=== PATIENT | male | born 1990 | race African-American/Black ===

== ENCOUNTER 2023-11-24 11:48 | Emergency (ER) | payer OTHER, SELFPAY ==
--- NOTE | ~2023-11-24 | XR_ITS ---
EXAMINATION: XR chest 2V 11/24/2023 12:31 INDICATION: Shortness of breath and chest pain PROCEDURE: 2 view chest COMPARISON: No prior studies for comparison. FINDINGS: The lungs are clear. The cardiomediastinal silhouette is within normal limits. There are no pleural effusions. There is no pneumothorax suspected. IMPRESSION: 1: NO ACUTE CARDIOPULMONARY DISEASE. Reviewed, dictated and finalized at location A.
[2023-11-24 11:52] VITALS: BP 166/83; PULSE 82; RESP 20; TEMP 36.7; O2SAT 100
--- NOTE | 2023-11-24 12:08 | ED_ITS ---
HPI - SOB/Dyspnea General Chief Complaint: Shortness of Breath/Dyspnea <Cheko Lopez APRN - Last Filed: 11/24/23 13:17> Stated Complaint: trouble breathing <Cheko Lopez APRN - Last Filed: 11/24/23 13:17> Time Seen by Provider: 11/24/23 11:55 <Cheko Lopez APRN - Last Filed: 11/24/23 13:17> Source: patient <Cheko Lopez APRN - Last Filed: 11/24/23 13:17> Mode of arrival: ambulatory <Cheko Lopez APRN - Last Filed: 11/24/23 13:17> Limitations: no limitations <Cheko Lopez APRN - Last Filed: 11/24/23 13:17> History of Present Illness HPI Narrative: Ariel is a 33-year-old male patient presenting to the emergency room today with complaints of difficulty breathing and midsternal chest pain since Sunday or Sunday. He does have a history of asthma and takes Symbicort and albuterol inhaler for this. Has history of hypertension and takes lisinopril. Denies any history of high cholesterol. States the pain is dull ache and is rating it a 5/10 currently. Pain is nonradiating. <Cheko Lopez APRN - Last Filed: 11/24/23 13:17> Related Data Home Medications: Home Medications Medication Instructions Recorded Confirmed budesonide-formoterol HFA 160 2 puff inhalation Q12H 10/27/22 10/27/22 mcg-4.5 mcg/actuation aerosol inhaler (Symbicort) <Cheko Lopez APRN - Last Filed: 11/24/23 13:17> Allergies/Adverse Reactions: Allergies Allergy/AdvReac Type Severity Reaction Status Date / Time tree nut Allergy Unknown Verified 11/24/23 12:11 <Cheko Lopez APRN - Last Filed: 11/24/23 13:17> Review of Systems Review of Systems: Pertinent positives per HPI. Patient denies any fever, chills, rash, headache, visual changes, dizziness, cough, runny nose, sore throat, shortness of breath, chest pain, palpitations, nausea, vomiting, diarrhea, constipation, abdominal pain, or any urinary issues. <Cheko Lopez APRN - Last Filed: 11/24/23 13:17> PMFSH Past Medical History Medical History: Medical History HTN (hypertension) Mucus in stool <Cheko Lopez APRN - Last Filed: 11/24/23 13:17> Surgical History Surgical History: Surgical History H/O removal of cyst <Cheko Lopez APRN - Last Filed: 11/24/23 13:17> Social History Social History: Social History Smoking status: Never smoker <Cheko Lopez APRN - Last Filed: 11/24/23 13:17> Comments At the time of my signature, I reviewed and agree with the nursing past medical, surgical, social, and family history. There is no relevant family history pertinent to the patient complaint. <Cheko Lopez APRN - Last Filed: 11/24/23 13:17> Exam Narrative: General: Well-developed, well nourished, in no apparent distress Head: Normocephalic, atraumatic. Cardio: Regular rate and rhythm, s1 and s2 normal, no murmur appreciated. Resp: Clear to auscultation bilaterally, no rhonchi, rales, wheezing or rubs. Extremities: No deformity, no edema, no cyanosis, capillary refill less than 2 seconds, peripheral pulses palpable and strong. Integumentary: Ribera, warm, and dry, intact without lesion, no rashes. <Cheko Lopez APRN - Last Filed: 11/24/23 13:17> Course Course Emergency Course: Portions of this record may have been created with voice recognition software. <Cheko Lopez APRN - Last Filed: 11/24/23 13:17> COMPENSATION BUSINESS PARTNER/PA Physician Supervision I agree with midlevel documentation; I performed the medical decision making component of this evaluation. <Love Malhotra MD - Last Filed: 11/24/23 13:45> Vital Signs Vital signs: Vital Signs Temperature 98.1 F 11/24/23 11:52 Pulse Rate 82 11/24/23 11:52 Respiratory Rate 20 11/24/23 11:52 Blood Pressure 166/83 H 11/24/23 11:52 Pulse Oximetry 100 11/24/23 11:52 Temperature 97.9 F 11/24/23 13:37 Pulse Rate 64 11/24/23 13:37 Respiratory Rate 16 11/24/23 13:37 Blood Pressure 170/92 H 11/24/23 13:37 Pulse Oximetry 100 11/24/23 13:37 Oxygen Delivery Room Air 11/24/23 12:09 Vital signs reviewed <Cheko Lopez APRN - Last Filed: 11/24/23 13:17> Vital Signs Temperature 98.1 F 11/24/23 11:52 Pulse Rate 82 11/24/23 11:52 Respiratory Rate 20 11/24/23 11:52 Blood Pressure 166/83 H 11/24/23 11:52 Pulse Oximetry 100 11/24/23 11:52 Temperature 97.9 F 11/24/23 13:37 Pulse Rate 64 11/24/23 13:37 Respiratory Rate 16 11/24/23 13:37 Blood Pressure 170/92 H 11/24/23 13:37 Pulse Oximetry 100 11/24/23 13:37 Oxygen Delivery Room Air 11/24/23 12:09 <Love Malhotra MD - Last Filed: 11/24/23 13:45> MDM - SOB/Dyspnea MDM Narrative Medical decision making narrative: At the time of visit patient is resting comfortably on the exam table. Patient appears to be nontoxic. EKG: EKG shows normal sinus rhythm with heart rate of 79 beats per minute without ST elevation, depression, or T-wave inversion. Labs: CBC shows white blood cell count of 4.5, H&H of 13.9 and 41.6, platelet count is 193, anticoagulations studies normal, D-dimer less than 0.27, chemistry shows sodium 139, potassium of 4.4, chloride 105, carbon dioxide of 31 with a BUN of 18 and creatinine 1.1, GFR is greater than 60, glucose is 103, liver function test within normal limits, troponin less than 0.012, bnp 20 Diagnostics: Chest x-ray is negative for any acute cardiopulmonary process. Plan: Heart score is 2. EKG is normal and troponin is negative. I suspect patient has chest discomfort is likely due to his asthma. Supportive measures were discussed with the patient and they voiced understanding discharge instructions and agrees to treatment plan. Return precautions reviewed <Cheko Lopez APRN - Last Filed: 11/24/23 13:17> Differential Diagnosis Differential diagnosis: Likely acute exacerbation of chronic obstructive airways disease, congestive heart failure, community acquired pneumonia, asthma with exacerbation, pulmonary embolism and other (Non STEMI, STEMI) <Cheko Lopez APRN - Last Filed: 11/24/23 13:17> Lab Data Result diagrams: 11/24/23 12:12 11/24/23 12:12 <Cheko Lopez APRN - Last Filed: 11/24/23 13:17> Labs: Lab Results 11/24/23 11/24/23 Range/Units 12:12 12:12 WBC 4.5 (4.5-10.0) K/mm3 RBC 4.78 (4.6-6.20) M/mm3 Hgb 13.9 L (14.0-18.0) g/dL Hct 41.6 L (42.0-52.0) % MCV 87.0 (80-100) fl MCH 29.1 (26-34) pg MCHC 33.4 (32-36) g/dl RDW 12.4 (11.5-14.5) % Plt Count 193 (150-375) k/mm3 MPV 10.5 H (7.4-10.4) fl Immature Gran % (Auto) 0.2 (0-0.5) % Neut % (Auto) 52.8 (45.5-73.1) % Lymph % (Auto) 34.2 (18.3-44.2) % Glenn % (Auto) 10.5 H (2.6-8.5) % Eos % (Auto) 1.6 (0-4.4) % Baso % (Auto) 0.7 (0.2-1.2) % Lymph # (Auto) 1.53 (0.9-3.2) K/mm3 Glenn # (Auto) 0.5 (0.1-0.6) K/mm3 Eos # (Auto) 0.1 (0-0.3) K/mm3 Baso # (Auto) 0.0 (0.0-0.1) K/mm3 Abs Immat Gran (auto) 0.01 (0.00-0.031) K/mm3 Absolute Neuts (auto) 2.4 (1.3-6.7) K/mm3 Absolute Nucleated RBC 0.000 (0.0-0.012) K/mm3 Nucleated RBC % 0.0 (0.0-0.2) % PT 13.1 (11.1-14.7) Seconds INR 1.0 APTT 49.9 H (22.3-36.8) Seconds D-Dimer < 0.27 Cancelled (<0.48) ug/mL Sodium 139 (137-145) mmol/L Potassium 4.4 (3.4-5.0) mmol/L Chloride 105 (98-107) mmol/L Carbon Dioxide 31 H (22-30) mmol/L Anion Gap 3 L (4-12) mmol/L BUN 18 (9-20) mg/dL Creatinine 1.10 (0.7-1.3) mg/dL Estim Creat Clear Calc 115 ml/min Estimated GFR > 60 (59 - ) Glucose 103 (65-110) mg/dL Calcium 9.6 (8.4-10.2) mg/dL Total Bilirubin 0.7 (0.2-1.3) mg/dL AST 33 (17-59) U/L ALT 31 (6-50) U/L Alkaline Phosphatase 33 L (38-126) U/L Troponin I < 0.012 (0.000-0.034) ng/mL NT-Pro-B Natriuret Pep 20 (19.9-100) pg/mL Total Protein 7.0 (6.3-8.2) g/dL Albumin 4.6 (3.5-5.1) g/dL <Cheko Lopez, BUSINESS ANALYST MANAGER - Last Filed: 11/24/23 13:17> Lab Results 11/24/23 11/24/23 Range/Units 12:12 12:12 WBC 4.5 (4.5-10.0) K/mm3 RBC 4.78 (4.6-6.20) M/mm3 Hgb 13.9 L (14.0-18.0) g/dL Hct 41.6 L (42.0-52.0) % MCV 87.0 (80-100) fl MCH 29.1 (26-34) pg MCHC 33.4 (32-36) g/dl RDW 12.4 (11.5-14.5) % Plt Count 193 (150-375) k/mm3 MPV 10.5 H (7.4-10.4) fl Immature Gran % (Auto) 0.2 (0-0.5) % Neut % (Auto) 52.8 (45.5-73.1) % Lymph % (Auto) 34.2 (18.3-44.2) % Glenn % (Auto) 10.5 H (2.6-8.5) % Eos % (Auto) 1.6 (0-4.4) % Baso % (Auto) 0.7 (0.2-1.2) % Lymph # (Auto) 1.53 (0.9-3.2) K/mm3 Glenn # (Auto) 0.5 (0.1-0.6) K/mm3 Eos # (Auto) 0.1 (0-0.3) K/mm3 Baso # (Auto) 0.0 (0.0-0.1) K/mm3 Abs Immat Gran (auto) 0.01 (0.00-0.031) K/mm3 Absolute Neuts (auto) 2.4 (1.3-6.7) K/mm3 Absolute Nucleated RBC 0.000 (0.0-0.012) K/mm3 Nucleated RBC % 0.0 (0.0-0.2) % PT 13.1 (11.1-14.7) Seconds INR 1.0 APTT 49.9 H (22.3-36.8) Seconds D-Dimer < 0.27 Cancelled (<0.48) ug/mL Sodium 139 (137-145) mmol/L Potassium 4.4 (3.4-5.0) mmol/L Chloride 105 (98-107) mmol/L Carbon Dioxide 31 H (22-30) mmol/L Anion Gap 3 L (4-12) mmol/L BUN 18 (9-20) mg/dL Creatinine 1.10 (0.7-1.3) mg/dL Estim Creat Clear Calc 115 ml/min Estimated GFR > 60 (59 - ) Glucose 103 (65-110) mg/dL Calcium 9.6 (8.4-10.2) mg/dL Total Bilirubin 0.7 (0.2-1.3) mg/dL AST 33 (17-59) U/L ALT 31 (6-50) U/L Alkaline Phosphatase 33 L (38-126) U/L Troponin I < 0.012 (0.000-0.034) ng/mL NT-Pro-B Natriuret Pep 20 (19.9-100) pg/mL Total Protein 7.0 (6.3-8.2) g/dL Albumin 4.6 (3.5-5.1) g/dL <Love Malhotra MD - Last Filed: 11/24/23 13:45> Discharge Plan Discharge Clinical Impression: Atypical chest pain Asthma Qualifiers: Asthma severity: mild Asthma persistence: intermittent Asthma complication type: unspecified Qualified Code(s): J45.20 - Mild intermittent asthma, uncomplicated Hypertension Qualifiers: Hypertension type: unspecified Qualified Code(s): I10 - Essential (primary) hypertension <Cheko Lopez APRN - Last Filed: 11/24/23 13:17> Patient Disposition: Home, Self-Care <Cheko Lopez APRN - Last Filed: 11/24/23 13:17> Condition: Stable <Cheko Lopez APRN - Last Filed: 11/24/23 13:17> Instructions: Antibiotic Form, Chest Pain (ED), Asthma (ED), Hypertension (ED) <Cheko Lopez APRN - Last Filed: 11/24/23 13:17> Additional Instructions: EKG: Labs, and chest x-ray are all reassuring. BP 166/83 in the ER today. Take prescription medications only as prescribed-albuterol inhaler Continue current medications Increase fluids and stay well hydrated Tylenol/motrin for pain/fever Return to the ED if you develop a worsening in your condition- high fever not controlled by Tylenol or Motrin, dehydration, weakness, lethargy, shortness of breath, or chest pain. Follow up with your PCP in 3-5 days if symptoms persist. <Cheko Lopez APRN - Last Filed: 11/24/23 13:17> Prescriptions: New albuterol sulfate 90 mcg/actuation HFA aerosol inhaler 2 puff inhalation Q4-6H PRN (Reason: shortness of breath or wheezing) 30 Days Qty: 8.5 0RF No Action budesonide-formoterol [Symbicort] 160-4.5 mcg/actuation HFA aerosol inhaler 2 puff inhalation Q12H <Cheko Lopez APRN - Last Filed: 11/24/23 13:17> Follow-up/Referrals: Iker,Sherrie Mullen MD [Primary Care Provider] - <Cheko Lopez APRN - Last Filed: 11/24/23 13:17> Time of Disposition: 13:15 <Cheko Lopez APRN - Last Filed: 11/24/23 13:17> 13:15 <Love Malhotra MD - Last Filed: 11/24/23 13:45> Quality NIHSS Nursing Documentation ED NIHSS nursing documentation: reviewed/agree <Cheko Lopez APRN - Last Filed: 11/24/23 13:17> HEART score for chest pain patients History: slightly suspicious <Cheko Lopez APRN - Last Filed: 11/24/23 13:17> ECG: normal <Cheko Lopez APRN - Last Filed: 11/24/23 13:17> Age: < or = to 45 years <Cheko Lopez APRN - Last Filed: 11/24/23 13:17> Risk factors: > or = to 3 risk factors of atherosclerotic disease <Cheko Lopez APRN - Last Filed: 11/24/23 13:17> Troponin: < or = to 1x normal limit <Cheko Lopez APRN - Last Filed: 11/24/23 13:17> Heart score: 2 <Cheko Lopez APRN - Last Filed: 11/24/23 13:17> 2 <Love Malhotra MD - Last Filed: 11/24/23 13:45>
[2023-11-24 12:09] VITALS: O2SAT 99
--- NOTE | 2023-11-24 12:09 | ECG_ITS ---
SEE SCANNED COPY FOR CONFIRMED REPORT MTDD
[2023-11-24] MEDS: ASPIRIN 81 MG CHEWABLE TABLET 324 MG PO (12:16)
[2023-11-24 12:20] LABS: Basophils Percent Auto 0.7 % (0.2-1.2); Eosinophils Absolute Auto 0.1 K/mm3 (0-0.3); Eosinophils Percent Auto 1.6 % (0-4.4); Hematocrit 41.6 % (42.0-52.0); Hemoglobin 13.9 g/dL (14.0-18.0); Immature Granulocyte Absolute 0.01 K/mm3 (0.00-0.031); Immature Granulocyte Percent A 0.2 % (0-0.5); Lymphocytes Absolute Auto 1.53 K/mm3 (0.9-3.2); Lymphocytes Percent Auto 34.2 % (18.3-44.2); Mean Corpuscular HGB Conc 33.4 g/dl (32-36); Mean Corpuscular Hemoglobin 29.1 pg (26-34); Mean Platelet Volume 10.5 fl (7.4-10.4); Monocytes Absolute Auto 0.5 K/mm3 (0.1-0.6); Monocytes Percent Auto 10.5 % (2.6-8.5); Neutrophils Absolute Auto 2.4 K/mm3 (1.3-6.7); Neutrophils Percent Auto 52.8 % (45.5-73.1); Platelet Count Result 193 k/mm3 (150-375); Red Blood Count 4.78 M/mm3 (4.6-6.20); Red Cell Distribution Width 12.4 % (11.5-14.5); White Blood Count 4.5 K/mm3 (4.5-10.0)
[2023-11-24 12:31] LABS: Alanine Aminotransferase 31 U/L (6-50); Albumin Level 4.6 g/dL (3.5-5.1); Alkaline Phosphatase 33 U/L (38-126); Anion Gap 3 mmol/L (4-12); Aspartate Amino Transferase 33 U/L (17-59); Bilirubin,Total 0.7 mg/dL (0.2-1.3); Blood Urea Nitrogen 18 mg/dL (9-20); Calcium 9.6 mg/dL (8.4-10.2); Carbon Dioxide 31 mmol/L (22-30); Chloride 105 mmol/L (98-107); Estimated CRCL calculation 115 ml/min; Estimated Glomerular Filt Rate > 60; Glucose 103 mg/dL (65-110); Potassium 4.4 mmol/L (3.4-5.0); Sodium 139 mmol/L (137-145)
[2023-11-24 12:34] LABS: Prothrombin Time 13.1 Seconds (11.1-14.7)
[2023-11-24 12:35] LABS: Partial Thromboplastin Time 49.9 Seconds (22.3-36.8)
[2023-11-24 12:38] LABS: NT Pro B Type Natriuretic Pept 20 pg/mL (19.9-100)
[2023-11-24 12:45] LABS: D Dimer < 0.27 ug/mL (<0.48); Troponin I < 0.012 ng/mL (0.000-0.034)
[2023-11-24 13:37] VITALS: BP 170/92; PULSE 64; RESP 16; TEMP 36.6; O2SAT 100
== END 2023-11-24 13:38 | disposition home or self-care (01) ==
PROVIDERS: Emergency Provider Nurse Practitioner Family; PCP Family Medicine
DX: J45.20 Mild intermittent asthma, uncomplicated (principal); R07.89 Other chest pain; I10 Essential (primary) hypertension
CPT/HCPCS: 36415; 71046; 80053; 83880; 84484; 85025; 85380; 85610; 85730; 93005; 99284; A9270

== ENCOUNTER 2024-07-10 11:33 | Day surgery (SDC) | payer OTHER, SELFPAY ==
[2024-05-23 08:20] VITALS: BMI 36.8
[2024-06-27 13:36] VITALS: BMI 36.3
--- NOTE | 2024-07-09 11:47 | WPDANESEPPF ---
Anes - Initial Pre Proc Eval Procedure: Operation Date: 07/10/24 13:45 Proposed Procedures p Diagnostic Colonoscopy - Dimitris Friend MD Date/Time: 07/09/24 11:47 Surgeon: Dimitris Friend MD Pre Op Diagnosis: Blood in stool, Patient Data Age: 34 Gender: M Height: 1.8 m Weight: 118 kg Allergies Allergy/AdvReac Type Severity Reaction Status Date / Time tree nut Allergy Anaphylaxis Verified 07/10/24 12:03 Home Medications Medication Instructions Recorded Confirmed Type albuterol sulfate 90 mcg/actuation 2 puff inhalation Q4-6H PRN 11/24/23 07/10/24 Rx aerosol inhaler shortness of breath or wheezing 30 days #8.5 grams epinephrine 0.3 mg/0.3 mL 0.3 mg (0.3 mL) IM ONCE #0.3 mL 03/21/24 07/10/24 Rx injection, auto-injector sodium,potassium,mag sulfates 17.5 See Rx Instructions PO .COMPLEX 05/23/24 07/10/24 Rx gram-3.13 gram-1.6 gram oral soln #354 mL (Suprep Bowel Prep Kit) budesonide-formoterol HFA 160 2 puff inhalation Q12H #10.2 grams 06/30/24 07/10/24 Rx mcg-4.5 mcg/actuation aerosol inhaler (Symbicort) lisinopril 20 mg tablet 20 mg PO DAILY #90 tabs 06/30/24 07/10/24 Rx Patient hx anesthesia problems: none Family hx anesthesia problems: none Results Review: All pre-operative results and documents have been reviewed as part of the pre-operative evaluation. [facility] Past Medical History Medical History (Updated 07/09/24 @ 11:47 by Chris Castillo DO) Asthma HTN (hypertension) Mucus in stool Surgical History Surgical History H/O removal of cyst Family History Family History (Updated 03/21/24 @ 09:16 by Chanda Fleming CMA) Mother Alcoholism Father Alcoholism Heart disease Hypertension Cerebrovascular accident Grandparent Cancer Depression Diabetes mellitus Grandparent Depression Diabetes mellitus Grandparent Depression Diabetes mellitus Grandparent Depression Diabetes mellitus Social History Social History (Updated 03/21/24 @ 09:22 by PARAMJIT Arias Smoking status: Never smoker Alcohol intake: current Drinks per week: 12 Alcohol use details: BEER Substance use: former Substance use type: marijuana Last use: APR 2024 Do You Feel Safe in your Home?: Yes Lack of Transportation: No Lack of Food: Never True Current Housing: I Have Housing Concerned About Future Housing: No Difficulty Paying Gas/Electric Bills: No Difficulty Paying for Meds: No Currently Unemployed: No Education: Bachelor's Degree Difficulty w/ Childcare or Family Care: No Living arrangements: with family Spiritual care concerns: No Anes - Eval Final PreProcedure Day of Procedure 07/09/24 11:47 Patient weight: obese Heart: regular rate and rhythm Lungs: clear to auscultation Airway: Mallampati scale class II Neurological: alert and oriented Last oral intake: >/= 8 hours ASA classification: III Emergent: no Anesthetic plan: proceed Anesthesia type and monitoring: general GIVS and standard monitoring Results Review: All pre-operative results and documents have been reviewed as part of the pre-operative evaluation. Informed Consent: The patient's anesthetic plan and its attendant risks and benefits were discussed with the patient/family/POA. Questions were solicited and answers provided to the satisfaction of the patient/family/POA.
[2024-07-10 12:04] VITALS: BP 146/92; PULSE 71; RESP 15; TEMP 37.1; O2SAT 100; BMI 36.8
--- NOTE | 2024-07-10 12:24 | PM.HPGS ---
History of Present Illness History of Present Illness Consent: Risks, benefits, and alternatives have been discussed and questions answered. Patient agrees to proceed with procedure. Chief complaint: Blood in stool, Narrative: Ariel Farr is a 34 year old male for colonoscopy. Patient reports over the last 2 years has noticed intermittent mucus in his stools. He occasionally has bright red blood per rectum noted with bowel movements. States this is a very small amount. Only occurs infrequently. Patient denies abdominal or rectal pain. Family history is noncontributory. Colonoscopy recommended today. Review of Systems Review of Systems: All systems reviewed & are unremarkable except as noted in HPI and below PMFSH Past Medical History Medical History (Updated 07/09/24 @ 11:47 by Chris Castillo, ) Asthma HTN (hypertension) Mucus in stool Surgical History Surgical History H/O removal of cyst Family History Family History (Updated 03/21/24 @ 09:16 by Chanda Fleming CMA) Mother Alcoholism Father Alcoholism Heart disease Hypertension Cerebrovascular accident Grandparent Cancer Depression Diabetes mellitus Grandparent Depression Diabetes mellitus Grandparent Depression Diabetes mellitus Grandparent Depression Diabetes mellitus Social History Social History (Updated 03/21/24 @ 09:22 by Chanda Fleming CMA) Smoking status: Never smoker Alcohol intake: current Drinks per week: 12 Alcohol use details: BEER Substance use: former Substance use type: marijuana Last use: APR 2024 Do You Feel Safe in your Home?: Yes Lack of Transportation: No Lack of Food: Never True Current Housing: I Have Housing Concerned About Future Housing: No Difficulty Paying Gas/Electric Bills: No Difficulty Paying for Meds: No Currently Unemployed: No Education: Bachelor's Degree Difficulty w/ Childcare or Family Care: No Living arrangements: with family Spiritual care concerns: No Meds Home Medications and Allergies Home Medications Medication Instructions Recorded Confirmed Type albuterol sulfate 90 mcg/actuation 2 puff inhalation Q4-6H PRN 11/24/23 07/10/24 Rx aerosol inhaler shortness of breath or wheezing 30 days #8.5 grams epinephrine 0.3 mg/0.3 mL 0.3 mg (0.3 mL) IM ONCE #0.3 mL 03/21/24 07/10/24 Rx injection, auto-injector sodium,potassium,mag sulfates 17.5 See Rx Instructions PO .COMPLEX 05/23/24 07/10/24 Rx gram-3.13 gram-1.6 gram oral soln #354 mL (Suprep Bowel Prep Kit) budesonide-formoterol HFA 160 2 puff inhalation Q12H #10.2 grams 06/30/24 07/10/24 Rx mcg-4.5 mcg/actuation aerosol inhaler (Symbicort) lisinopril 20 mg tablet 20 mg PO DAILY #90 tabs 06/30/24 07/10/24 Rx Allergies Allergy/AdvReac Type Severity Reaction Status Date / Time tree nut Allergy Anaphylaxis Verified 07/10/24 12:03 Vital Signs Vital Signs - 24 hr 07/10/24 12:04 Temperature 98.8 F Pulse Rate 71 Respiratory Rate 15 Blood Pressure 146/92 H Pulse Oximetry 100 Oxygen Delivery Room Air Exam Narrative: Physical exam reveals patient signs stable. HEENT exam is unremarkable. Patient is anicteric. Lungs are clear to auscultation and to percussion. Heart is without murmur or extra sounds. Abdomen bowel sounds are present soft nontender with no organomegaly. Digital external rectal exam normal. Assessment and Plan Assessment and plan (1) Blood in stool: Code(s): K92.1 - Melena Status: Acute Assessment and Plan: Patient with occasional blood in stool. He also has occasional mucus in his stools. Plan for colonoscopy to evaluate more thoroughly. Initial treatment plan is to start high-fiber supplementation until this is accomplished.
[2024-07-10] MEDS: LACTATED RINGERS 1,000 ML 150 ML IV CONT (12:29)
[2024-07-10 13:53] VITALS: BP 131/72; PULSE 103; RESP 18; O2SAT 98
--- NOTE | 2024-07-10 13:55 | WPDANESPN ---
Anes - Prog Note Post-Op Date/Time: 07/10/24 13:55 Cardiovascular status: normal Respiratory status: normal Airway patency: baseline Mental status: baseline Post-Op hydration status: normal Vital Signs: Last Vital Signs Temp 37.1 C 07/10/24 12:04 Pulse 71 07/10/24 12:04 Resp 15 07/10/24 12:04 BP 146/92 H 07/10/24 12:04 Pulse Ox 100 07/10/24 12:04 O2 Del Method Room Air 07/10/24 12:04 Pain Score (VAS): 0 I/O: Intake & Output 07/09/24 07/10/24 07/10/24 23:59 07:59 15:59 Intake Total 400 Balance 400 Post-procedural complaints: none Patient Feedback: Patient satisfied with anesthetic care. Other Findings: Patient vital signs back to baseline. Patient denies nausea and vomiting. Patient's pain under control. Patient OK for discharge.
[2024-07-10 14:03] VITALS: BP 135/90; PULSE 90; RESP 18; O2SAT 100
== END 2024-07-10 14:27 | disposition home or self-care (01) ==
PROVIDERS: PCP Clinical Nurse Specialist; Visit Provider Internal Medicine Gastroenterology
PROC: 0DJD8ZZ Inspection of Lower Intestinal Tract, Via Natural or Artificial Opening Endoscopic (ICD-10-PCS; CPT 45378; principal; 2024-07-10 13:45)
DX: K92.1 Melena (principal); K64.8 Other hemorrhoids
CPT/HCPCS: 45378

== ENCOUNTER 2024-08-13 09:31 | Outpatient (CLI) | payer OTHER, SELFPAY ==
--- NOTE | ~2024-08-13 | US_ITS ---
Head and neck ULTRASOUND Ordering provider: LEONARD Lawson History: . R59.9 - Enlarged lymph nodes, unspecified . Comparison: None. FINDINGS/impression: Lymph node seen in the right parotid area measuring 0.5 x 1 x 0.6 cm. Lymph nodes in the right mid neck measuring 1.2 x 0.7 x 0.5 cm. Lymph nodes in the right supraclavicular area measuring 0.9 x 0.7 x 0.6 cm. Reviewed, dictated and finalized at location A. N'S ACTIVITIES ADVISER
--- NOTE | ~2024-08-13 | US_ITS ---
Left supraclavicular/pectoral area ULTRASOUND Ordering provider: LEONARD Lawson History: . R22.0 - Localized swelling, mass and lump, head . Comparison: None. FINDINGS/impression: No definite mass is seen. Reviewed, dictated and finalized at location A. OND SIZER AND GRADER
== END 2024-08-13 09:32 | disposition home or self-care (01) ==
PROVIDERS: PCP Clinical Nurse Specialist; Visit Provider Clinical Nurse Specialist
DX: R59.1 Generalized enlarged lymph nodes (principal)
CPT/HCPCS: 76536; 76604